=== PATIENT | female | born 1990 | race African-American/Black ===

== ENCOUNTER 2017-06-10 12:13 | Emergency (ER) | payer MEDICAID ==
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
[2017-06-10 15:05] VITALS: BP 108/71; PULSE 60; RESP 12; TEMP 97.5; O2SAT 99
== END 2017-06-10 15:18 | disposition home or self-care (01) ==
DX: S20.212A Contusion of left front wall of thorax, initial encounter (principal); V49.40XA Driver injured in collision with unspecified motor vehicles in traffic accident, initial encounter; Y92.410 Unspecified street and highway as the place of occurrence of the external cause; Y99.8 Other external cause status; Y93.89 Activity, other specified